=== PATIENT | male | born 1990 | race African-American/Black ===

== ENCOUNTER → 2019-05-31 | Emergency (ER) | payer BC, OTHER ==
[~2019-05-31] VITALS: Ht 188 cm; Wt 104.3 kg
[2019-05-31 19:23] VITALS: BP 131/84
== END | disposition home or self-care (01) ==
LOC: ER 19:06
DX: S00.501A Unspecified superficial injury of lip, initial encounter (principal); F17.210 Nicotine dependence, cigarettes, uncomplicated; W21.05XA Struck by basketball, initial encounter; Y93.89 Activity, other specified; Y92.89 Other specified places as the place of occurrence of the external cause; Y99.8 Other external cause status